=== PATIENT | female | born 1950 | race Caucasian/White ===

== ENCOUNTER 2016-12-24 16:40 | Inpatient (IN) | payer OTHER ==
[~2016-12-24] VITALS: Ht 167.6 cm; Wt 67.6 kg
[2016-12-24] MEDS ORDERED: HYDROCHLOROTHIA25 MG PO (17:12)
[2016-12-24] MEDS ORDERED: TENORMIN50 MG PO (17:12)
[2016-12-24] MEDS ORDERED: CYCLOBENZAPRINE10 MG PO (17:12)
[2016-12-24] MEDS ORDERED: DEXILANT60 M1 PO (17:13)
[2016-12-24 17:26] LABS: PLATELET COUNT 149 x10^3mcL (130-400); RED CELL DISTRIBUTION WIDTH 13.6 % (11.5-14.5)
[2016-12-24 17:45] LABS: BAND NEUTROPHIL 6 % (0-10); BASOPHIL 0 % (0-2); MONOCYTE 5 % (0-7); SEGMENTED NEUTROPHILS 84 % (37-75)
[2016-12-24 17:46] LABS: PLATELET MORPHOLOGY PLATELETS NORMAL
[2016-12-24 17:53] LABS: BILIRUBIN TOTAL 1.4 mg/dL (0.20-1.00); CALCIUM 8.4 mg/dL (8.5-10.1)
[2016-12-24 17:56] LABS: ALBUMIN 3.1 g/dL (3.4-5.0); TOTAL PROTEIN, SERUM 5.5 g/dL (6.4-8.2)
[2016-12-24 17:57] LABS: CARBON DIOXIDE 6.5 mmol/L (21-32); POTASSIUM SERUM 7.2 mmol/L (3.5-5.1)
[2016-12-24] MEDS ORDERED: SYNTHROID0.112 MG PO (18:39)
[2016-12-24] MEDS ORDERED: ESTRACE0.1 MG/GM TOP (18:42)
[2016-12-24 19:45] LABS: BILIRUBIN TOTAL 1.1 mg/dL (0.20-1.00); CREATININE SERUM 3.8 mg/dL (0.6-1.0)
[2016-12-24 19:58] LABS: UA SPECIFIC GRAVITY 1.015 (1.005-1.035); microscopic required? YES; urine erythrocyte 1+ (NEGATIVE)
[2016-12-24 20:01] LABS: TOTAL PROTEIN, SERUM 5.4 g/dL (6.4-8.2)
[2016-12-24 20:03] LABS: CARBON DIOXIDE 5.2 mmol/L (21-32); POTASSIUM SERUM 6.2 mmol/L (3.5-5.1)
[2016-12-24 20:54] LABS: T4(THYROXINE) 7.7 ug/dL (4.7-13.3)
[2016-12-25] VITALS (10 sets, daily range): BP systolic 70–113; BP diastolic 35–66
[2016-12-25 01:02] LABS: CALCIUM 7.1 mg/dL (8.5-10.1); CARBON DIOXIDE 12.4 mmol/L (21-32); CREATININE SERUM 3.7 mg/dL (0.6-1.0); MAGNESIUM 1.7 mg/dL (1.8-2.4); PHOSPHOROUS 6.2 mg/dL (2.5-4.9); POTASSIUM SERUM 4.3 mmol/L (3.5-5.1)
[2016-12-25 05:18] LABS: CALCIUM 6.9 mg/dL (8.5-10.1); CARBON DIOXIDE 15.7 mmol/L (21-32); CREATININE SERUM 3.8 mg/dL (0.6-1.0); MAGNESIUM 1.5 mg/dL (1.8-2.4); PHOSPHOROUS 4.3 mg/dL (2.5-4.9); POTASSIUM SERUM 4.1 mmol/L (3.5-5.1)
[2016-12-25 05:29] LABS: BASOPHIL % 0.3 % (0-2); PLATELET COUNT 130 x10^3mcL (130-400); RED CELL DISTRIBUTION WIDTH 13.2 % (11.5-14.5)
[2016-12-25 07:48] LABS: CALCIUM 7.1 mg/dL (8.5-10.1); CARBON DIOXIDE 19.1 mmol/L (21-32); CREATININE SERUM 3.6 mg/dL (0.6-1.0); MAGNESIUM 1.5 mg/dL (1.8-2.4); PHOSPHOROUS 3.5 mg/dL (2.5-4.9); POTASSIUM SERUM 3.9 mmol/L (3.5-5.1)
[2016-12-25 11:23] LABS: CALCIUM 6.9 mg/dL (8.5-10.1); MAGNESIUM 1.4 mg/dL (1.8-2.4); PHOSPHOROUS 3.3 mg/dL (2.5-4.9); POTASSIUM SERUM 4.1 mmol/L (3.5-5.1)
[2016-12-25 15:31] LABS: CALCIUM 6.5 mg/dL (8.5-10.1); CREATININE SERUM 3.8 mg/dL (0.6-1.0); MAGNESIUM 2.2 mg/dL (1.8-2.4); PHOSPHOROUS 3.2 mg/dL (2.5-4.9); POTASSIUM SERUM 3.9 mmol/L (3.5-5.1)
[2016-12-25 16:57] LABS: PLATELET COUNT 131 x10^3mcL (130-400); RED CELL DISTRIBUTION WIDTH 13.5 % (11.5-14.5)
[2016-12-25 17:22] LABS: BAND NEUTROPHIL 10 % (0-10); BASOPHIL 0 % (0-2); MONOCYTE 5 % (0-7); SEGMENTED NEUTROPHILS 78 % (37-75)
[2016-12-25 18:53] LABS: CALCIUM 7.1 mg/dL (8.5-10.1); CARBON DIOXIDE 22.5 mmol/L (21-32); PHOSPHOROUS 4.2 mg/dL (2.5-4.9); POTASSIUM SERUM 4.5 mmol/L (3.5-5.1)
[2016-12-25 18:58] LABS: CREATININE SERUM 4.1 mg/dL (0.6-1.0)
[2016-12-26] VITALS (18 sets, daily range): BP systolic 91–118; BP diastolic 36–64
[2016-12-26 00:57] LABS: CARBON DIOXIDE 17.1 mmol/L (21-32); MAGNESIUM 1.8 mg/dL (1.8-2.4); PHOSPHOROUS 3.7 mg/dL (2.5-4.9); POTASSIUM SERUM 4.6 mmol/L (3.5-5.1)
[2016-12-26 01:04] LABS: CREATININE SERUM 4.3 mg/dL (0.6-1.0)
[2016-12-26 05:23] LABS: RED CELL DISTRIBUTION WIDTH 13.4 % (11.5-14.5)
[2016-12-26 05:35] LABS: PLATELET COUNT 126 x10^3mcL (130-400)
[2016-12-26 05:40] LABS: CALCIUM 6.8 mg/dL (8.5-10.1); CARBON DIOXIDE 15.2 mmol/L (21-32); MAGNESIUM 1.6 mg/dL (1.8-2.4); POTASSIUM SERUM 4.7 mmol/L (3.5-5.1)
[2016-12-26 05:52] LABS: CREATININE SERUM 4.8 mg/dL (0.6-1.0)
[2016-12-26 06:13] LABS: BAND NEUTROPHIL 5 % (0-10); MONOCYTE 4 % (0-7); SEGMENTED NEUTROPHILS 79 % (37-75)
[2016-12-26 06:14] LABS: METAMYELOCTE 4 % (0-2)
[2016-12-26 06:15] LABS: ovalocyte/elliptocyte 1+; rbc morphology (normal/abnorm) ABNORMAL (NORMAL); tear drop cell (dacryocyte) 1+
[2016-12-26 11:32] LABS: CALCIUM 6.7 mg/dL (8.5-10.1); CARBON DIOXIDE 12.8 mmol/L (21-32); MAGNESIUM 2.1 mg/dL (1.8-2.4); POTASSIUM SERUM 3.6 mmol/L (3.5-5.1)
[2016-12-26 11:37] LABS: CREATININE SERUM 5.2 mg/dL (0.6-1.0)
[2016-12-26 16:20] LABS: CARBON DIOXIDE 15.3 mmol/L (21-32); PHOSPHOROUS 3.8 mg/dL (2.5-4.9); POTASSIUM SERUM 3.5 mmol/L (3.5-5.1)
[2016-12-26 20:04] LABS: CARBON DIOXIDE 17.6 mmol/L (21-32); PHOSPHOROUS 3.4 mg/dL (2.5-4.9); POTASSIUM SERUM 3.2 mmol/L (3.5-5.1)
[2016-12-26 20:05] LABS: CREATININE SERUM 4.8 mg/dL (0.6-1.0)
[2016-12-27] VITALS (17 sets, daily range): BP systolic 96–147; BP diastolic 37–54
[2016-12-27 01:23] LABS: MAGNESIUM 1.8 mg/dL (1.8-2.4); PHOSPHOROUS 2.8 mg/dL (2.5-4.9); POTASSIUM SERUM 3.7 mmol/L (3.5-5.1)
[2016-12-27 01:25] LABS: CREATININE SERUM 4.6 mg/dL (0.6-1.0)
[2016-12-27 05:22] LABS: BASOPHIL % 0.2 % (0-2); RED CELL DISTRIBUTION WIDTH 14.2 % (11.5-14.5)
[2016-12-27 05:28] LABS: PLATELET COUNT 83 x10^3mcL (130-400)
[2016-12-27 05:40] LABS: CALCIUM 7.2 mg/dL (8.5-10.1); CARBON DIOXIDE 18.2 mmol/L (21-32); MAGNESIUM 1.7 mg/dL (1.8-2.4); PHOSPHOROUS 2.5 mg/dL (2.5-4.9); POTASSIUM SERUM 3.3 mmol/L (3.5-5.1)
[2016-12-27 05:44] LABS: CREATININE SERUM 4.6 mg/dL (0.6-1.0)
[2016-12-27 08:55] LABS: CALCIUM 7.4 mg/dL (8.5-10.1); CARBON DIOXIDE 21.7 mmol/L (21-32); MAGNESIUM 2.2 mg/dL (1.8-2.4); PHOSPHOROUS 2.4 mg/dL (2.5-4.9); POTASSIUM SERUM 3.6 mmol/L (3.5-5.1)
[2016-12-27 09:00] LABS: CREATININE SERUM 4.7 mg/dL (0.6-1.0)
[2016-12-27 12:34] LABS: CALCIUM 7.3 mg/dL (8.5-10.1); CARBON DIOXIDE 20.7 mmol/L (21-32); POTASSIUM SERUM 3.7 mmol/L (3.5-5.1)
[2016-12-27 12:38] LABS: CREATININE SERUM 4.5 mg/dL (0.6-1.0)
[2016-12-27 17:00] LABS: CALCIUM 7.3 mg/dL (8.5-10.1); CARBON DIOXIDE 20.1 mmol/L (21-32); POTASSIUM SERUM 4.3 mmol/L (3.5-5.1)
[2016-12-27 17:02] LABS: CREATININE SERUM 4.4 mg/dL (0.6-1.0)
[2016-12-27 20:48] LABS: CALCIUM 7.3 mg/dL (8.5-10.1); CARBON DIOXIDE 17.8 mmol/L (21-32); POTASSIUM SERUM 5.3 mmol/L (3.5-5.1)
[2016-12-27 20:51] LABS: CREATININE SERUM 4.7 mg/dL (0.6-1.0)
[2016-12-28] VITALS (15 sets, daily range): BP systolic 95–133; BP diastolic 41–57
[2016-12-28 00:27] LABS: CALCIUM 7.2 mg/dL (8.5-10.1); CARBON DIOXIDE 18.1 mmol/L (21-32); POTASSIUM SERUM 4.8 mmol/L (3.5-5.1)
[2016-12-28 00:29] LABS: CREATININE SERUM 4.9 mg/dL (0.6-1.0)
[2016-12-28 04:47] LABS: BASOPHIL % 0.2 % (0-2); RED CELL DISTRIBUTION WIDTH 13.4 % (11.5-14.5)
[2016-12-28 04:51] LABS: PLATELET COUNT 84 x10^3mcL (130-400)
[2016-12-28 05:15] LABS: CALCIUM 7.4 mg/dL (8.5-10.1); CARBON DIOXIDE 20.6 mmol/L (21-32); PHOSPHOROUS 3.3 mg/dL (2.5-4.9); POTASSIUM SERUM 4.7 mmol/L (3.5-5.1)
[2016-12-28 05:18] LABS: CREATININE SERUM 4.7 mg/dL (0.6-1.0)
[2016-12-28 09:20] LABS: CALCIUM 7.5 mg/dL (8.5-10.1); CARBON DIOXIDE 20.4 mmol/L (21-32); POTASSIUM SERUM 4.5 mmol/L (3.5-5.1)
[2016-12-28 09:21] LABS: ALBUMIN 1.7 g/dL (3.4-5.0); BILIRUBIN DIRECT 0.3 mg/dL (0.0-0.2); BILIRUBIN TOTAL 0.48 mg/dL (0.20-1.00); CREATININE SERUM 4.6 mg/dL (0.6-1.0); TOTAL PROTEIN, SERUM 4.4 g/dL (6.4-8.2)
[2016-12-28 12:59] LABS: CALCIUM 7.5 mg/dL (8.5-10.1); CARBON DIOXIDE 18.9 mmol/L (21-32); POTASSIUM SERUM 4.8 mmol/L (3.5-5.1)
[2016-12-28 13:01] LABS: CREATININE SERUM 4.6 mg/dL (0.6-1.0)
[2016-12-29] VITALS (18 sets, daily range): BP systolic 107–133; BP diastolic 46–72
[2016-12-29 04:49] LABS: CALCIUM 7.4 mg/dL (8.5-10.1); CARBON DIOXIDE 24.7 mmol/L (21-32); PHOSPHOROUS 3.9 mg/dL (2.5-4.9); POTASSIUM SERUM 4.7 mmol/L (3.5-5.1)
[2016-12-29 04:51] LABS: BASOPHIL % 0.3 % (0-2); RED CELL DISTRIBUTION WIDTH 13.7 % (11.5-14.5)
[2016-12-29 04:53] LABS: CREATININE SERUM 4.4 mg/dL (0.6-1.0); PLATELET COUNT 89 x10^3mcL (130-400)
[2016-12-29 05:32] LABS: ovalocyte/elliptocyte 1+; rbc morphology (normal/abnorm) ABNORMAL (NORMAL)
[2016-12-30] VITALS (15 sets, daily range): BP systolic 113–187; BP diastolic 42–70
[2016-12-30 05:35] LABS: BASOPHIL % 0.3 % (0-2)
[2016-12-30 05:37] LABS: PLATELET COUNT 101 x10^3mcL (130-400); RED CELL DISTRIBUTION WIDTH 17.6 % (11.5-14.5)
[2016-12-30 05:45] LABS: CALCIUM 8.3 mg/dL (8.5-10.1); CARBON DIOXIDE 23.5 mmol/L (21-32); PHOSPHOROUS 4.6 mg/dL (2.5-4.9); POTASSIUM SERUM 4.7 mmol/L (3.5-5.1)
[2016-12-30 05:54] LABS: CREATININE SERUM 4.1 mg/dL (0.6-1.0)
[2016-12-31] VITALS (25 sets, daily range): BP systolic 103–143; BP diastolic 39–67
[2016-12-31 05:57] LABS: CALCIUM 8.2 mg/dL (8.5-10.1); CARBON DIOXIDE 22.2 mmol/L (21-32); MAGNESIUM 1.7 mg/dL (1.8-2.4); PHOSPHOROUS 5.2 mg/dL (2.5-4.9); POTASSIUM SERUM 4.5 mmol/L (3.5-5.1)
[2016-12-31 06:02] LABS: CREATININE SERUM 4.1 mg/dL (0.6-1.0)
[2016-12-31 06:03] LABS: BASOPHIL % 0.3 % (0-2)
[2016-12-31 06:06] LABS: PLATELET COUNT 117 x10^3mcL (130-400); RED CELL DISTRIBUTION WIDTH 18.1 % (11.5-14.5)
[2017-01-01] VITALS (18 sets, daily range): BP systolic 114–154; BP diastolic 47–86
[2017-01-01 05:01] LABS: BASOPHIL % 0.5 % (0-2); PLATELET COUNT 139 x10^3mcL (130-400)
[2017-01-01 05:07] LABS: RED CELL DISTRIBUTION WIDTH 17.8 % (11.5-14.5)
[2017-01-01 05:13] LABS: CALCIUM 8.3 mg/dL (8.5-10.1); CARBON DIOXIDE 25.5 mmol/L (21-32); MAGNESIUM 2.5 mg/dL (1.8-2.4); PHOSPHOROUS 4.4 mg/dL (2.5-4.9); POTASSIUM SERUM 3.3 mmol/L (3.5-5.1)
[2017-01-01 05:23] LABS: CREATININE SERUM 4.1 mg/dL (0.6-1.0)
[2017-01-02] VITALS (11 sets, daily range): BP systolic 91–151; BP diastolic 46–68
[2017-01-02 04:43] LABS: BASOPHIL % 0.4 % (0-2); PLATELET COUNT 147 x10^3mcL (130-400)
[2017-01-02 04:45] LABS: RED CELL DISTRIBUTION WIDTH 17.6 % (11.5-14.5)
[2017-01-02 04:59] LABS: CALCIUM 8.4 mg/dL (8.5-10.1); CARBON DIOXIDE 27.9 mmol/L (21-32); CREATININE SERUM 3.8 mg/dL (0.6-1.0); MAGNESIUM 2.2 mg/dL (1.8-2.4); POTASSIUM SERUM 3.5 mmol/L (3.5-5.1)
[2017-01-03] VITALS (7 sets, daily range): BP systolic 115–144; BP diastolic 47–69
[2017-01-03 05:34] LABS: CALCIUM 8.7 mg/dL (8.5-10.1); CARBON DIOXIDE 31.1 mmol/L (21-32); CREATININE SERUM 3.6 mg/dL (0.6-1.0); MAGNESIUM 2.2 mg/dL (1.8-2.4); POTASSIUM SERUM 3.4 mmol/L (3.5-5.1)
[2017-01-03 05:35] LABS: BASOPHIL % 0.3 % (0-2); PLATELET COUNT 184 x10^3mcL (130-400); RED CELL DISTRIBUTION WIDTH 17.9 % (11.5-14.5)
[2017-01-04 03:23] VITALS: BP 136/53
[2017-01-04 05:41] LABS: PLATELET COUNT 216 x10^3mcL (130-400)
[2017-01-04 06:03] LABS: RED CELL DISTRIBUTION WIDTH 18.4 % (11.5-14.5)
[2017-01-04 06:07] LABS: BAND NEUTROPHIL 5 % (0-10); METAMYELOCTE 1 % (0-2); MONOCYTE 1 % (0-7); SEGMENTED NEUTROPHILS 89 % (37-75)
[2017-01-04 06:10] LABS: PLATELET MORPHOLOGY LARGE PLATELET SEEN; ovalocyte/elliptocyte 1+; rbc morphology (normal/abnorm) ABNORMAL (NORMAL); tear drop cell (dacryocyte) 1+
[2017-01-04 06:35] LABS: CALCIUM 8.1 mg/dL (8.5-10.1); CARBON DIOXIDE 28.9 mmol/L (21-32); CREATININE SERUM 3.7 mg/dL (0.6-1.0); MAGNESIUM 1.9 mg/dL (1.8-2.4); PHOSPHOROUS 4.5 mg/dL (2.5-4.9); POTASSIUM SERUM 4.6 mmol/L (3.5-5.1)
[2017-01-04 07:29] VITALS: BP 125/43
[2017-01-04 11:11] VITALS: BP 124/45
[2017-01-04 11:16] LABS: BASOPHIL % 0.1 % (0-2); PLATELET COUNT 233 x10^3mcL (130-400)
[2017-01-04 11:20] LABS: RED CELL DISTRIBUTION WIDTH 19.4 % (11.5-14.5)
[2017-01-04 21:22] VITALS: BP 118/39
[2017-01-05] VITALS (9 sets, daily range): BP systolic 94–140; BP diastolic 32–50; Ht 167.6 cm; Wt 67.6 kg
[2017-01-05 06:59] LABS: MAGNESIUM 2.6 mg/dL (1.8-2.4); PHOSPHOROUS 5.1 mg/dL (2.5-4.9)
[2017-01-05 07:00] LABS: PLATELET COUNT 251 x10^3mcL (130-400); RED CELL DISTRIBUTION WIDTH 18.8 % (11.5-14.5)
[2017-01-05 07:02] LABS: BILIRUBIN TOTAL 1.3 mg/dL (0.20-1.00); CALCIUM 8.7 mg/dL (8.5-10.1); CARBON DIOXIDE 25.2 mmol/L (21-32); CREATININE SERUM 3.9 mg/dL (0.6-1.0)
[2017-01-05 07:05] LABS: ALBUMIN 1.7 g/dL (3.4-5.0); TOTAL PROTEIN, SERUM 5.9 g/dL (6.4-8.2)
[2017-01-05 10:18] LABS: BAND NEUTROPHIL 3 % (0-10); SEGMENTED NEUTROPHILS 89 % (37-75)
[2017-01-05 10:19] LABS: MONOCYTE 4 % (0-7); rbc morphology (normal/abnorm) ABNORMAL (NORMAL)
[2017-01-06 06:14] VITALS: BP 120/43
[2017-01-06 06:26] LABS: BASOPHIL % 0.1 % (0-2); PLATELET COUNT 255 x10^3mcL (130-400)
[2017-01-06 06:28] LABS: CALCIUM 8.2 mg/dL (8.5-10.1); CARBON DIOXIDE 27.7 mmol/L (21-32); CREATININE SERUM 3.5 mg/dL (0.6-1.0); MAGNESIUM 2.1 mg/dL (1.8-2.4); PHOSPHOROUS 4.7 mg/dL (2.5-4.9); POTASSIUM SERUM 3.1 mmol/L (3.5-5.1)
[2017-01-06 07:04] LABS: RED CELL DISTRIBUTION WIDTH 20.1 % (11.5-14.5); rbc morphology (normal/abnorm) ABNORMAL (NORMAL)
[2017-01-06 10:00] VITALS: BP 122/43
[2017-01-06 14:00] VITALS: BP 126/45
[2017-01-06 17:55] VITALS: BP 117/40
[2017-01-06 22:15] VITALS: BP 121/44
[2017-01-07 06:13] LABS: PLATELET COUNT 283 x10^3mcL (130-400)
[2017-01-07 06:14] VITALS: BP 114/49
[2017-01-07 06:25] LABS: BASOPHIL % 0 % (0-2)
[2017-01-07 06:31] LABS: CALCIUM 8.2 mg/dL (8.5-10.1); CARBON DIOXIDE 27.6 mmol/L (21-32); CREATININE SERUM 3.2 mg/dL (0.6-1.0); PHOSPHOROUS 3.4 mg/dL (2.5-4.9)
[2017-01-07 11:13] VITALS: BP 115/38
[2017-01-07 21:15] VITALS: BP 115/43
[2017-01-08 05:27] VITALS: BP 121/41
[2017-01-08 06:04] LABS: PLATELET COUNT 321 x10^3mcL (130-400)
[2017-01-08 06:37] LABS: CALCIUM 8.4 mg/dL (8.5-10.1); CARBON DIOXIDE 24.9 mmol/L (21-32); CREATININE SERUM 3.3 mg/dL (0.6-1.0); PHOSPHOROUS 3.2 mg/dL (2.5-4.9); POTASSIUM SERUM 4.3 mmol/L (3.5-5.1)
[2017-01-08 06:39] LABS: RED CELL DISTRIBUTION WIDTH 20.9 % (11.5-14.5)
[2017-01-08 08:41] VITALS: BP 123/45
[2017-01-08 12:16] LABS: BAND NEUTROPHIL 0 % (0-10); BASOPHIL 1 % (0-2); MONOCYTE 8 % (0-7); SEGMENTED NEUTROPHILS 85 % (37-75)
[2017-01-08 12:18] LABS: PLATELET MORPHOLOGY LARGE PLATELET SEEN; rbc morphology (normal/abnorm) ABNORMAL (NORMAL); schistocyte (helmet cell) 1+
[2017-01-08 13:04] VITALS: BP 123/41
[2017-01-08 16:33] VITALS: BP 113/44
[2017-01-08 21:21] VITALS: BP 118/43
[2017-01-09 06:00] VITALS: BP 127/46
[2017-01-09 06:16] LABS: PLATELET COUNT 300 x10^3mcL (130-400)
[2017-01-09 06:45] LABS: RED CELL DISTRIBUTION WIDTH 21.5 % (11.5-14.5)
[2017-01-09 06:53] LABS: CALCIUM 8.1 mg/dL (8.5-10.1); CARBON DIOXIDE 26.2 mmol/L (21-32); CREATININE SERUM 3.4 mg/dL (0.6-1.0); MAGNESIUM 1.9 mg/dL (1.8-2.4); PHOSPHOROUS 3.3 mg/dL (2.5-4.9); POTASSIUM SERUM 4.5 mmol/L (3.5-5.1)
[2017-01-09 10:00] VITALS: BP 118/37
[2017-01-09 10:20] VITALS: BP 118/37
[2017-01-09 13:41] LABS: MONOCYTE 6 % (0-7); SEGMENTED NEUTROPHILS 87 % (37-75); rbc morphology (normal/abnorm) ABNORMAL (NORMAL)
[2017-01-09 13:42] LABS: PLATELET MORPHOLOGY LARGE PLATELET SEEN
[2017-01-09 14:30] VITALS: BP 123/43
[2017-01-09 18:58] VITALS: BP 120/47
[2017-01-09 21:28] VITALS: BP 118/44
[2017-01-10 05:44] VITALS: BP 124/46
[2017-01-10 06:13] LABS: PLATELET COUNT 312 x10^3mcL (130-400)
[2017-01-10 06:36] LABS: CALCIUM 8.4 mg/dL (8.5-10.1); CARBON DIOXIDE 23.6 mmol/L (21-32); CREATININE SERUM 3.2 mg/dL (0.6-1.0); POTASSIUM SERUM 4.2 mmol/L (3.5-5.1)
[2017-01-10 07:21] LABS: RED CELL DISTRIBUTION WIDTH 21.1 % (11.5-14.5)
[2017-01-10 10:25] LABS: BAND NEUTROPHIL 1 % (0-10); BASOPHIL 0 % (0-2); MONOCYTE 8 % (0-7); PLATELET MORPHOLOGY LARGE PLATELET SEEN; SEGMENTED NEUTROPHILS 72 % (37-75); rbc morphology (normal/abnorm) ABNORMAL (NORMAL)
[2017-01-10 10:50] VITALS: BP 128/51
[2017-01-10 14:55] VITALS: BP 127/45
[2017-01-10 18:15] VITALS: BP 132/46
[2017-01-10 21:49] VITALS: BP 125/42
[2017-01-11 06:17] VITALS: BP 114/47
[2017-01-11 07:12] LABS: PLATELET COUNT 336 x10^3mcL (130-400)
[2017-01-11 07:24] LABS: RED CELL DISTRIBUTION WIDTH 22.9 % (11.5-14.5)
[2017-01-11 07:28] LABS: CALCIUM 8.5 mg/dL (8.5-10.1); CARBON DIOXIDE 24.2 mmol/L (21-32); CREATININE SERUM 3.2 mg/dL (0.6-1.0); POTASSIUM SERUM 3.7 mmol/L (3.5-5.1)
[2017-01-11 09:33] VITALS: BP 123/84
[2017-01-11 10:08] LABS: BAND NEUTROPHIL 1 % (0-10); BASOPHIL 0 % (0-2); MONOCYTE 8 % (0-7); SEGMENTED NEUTROPHILS 80 % (37-75)
[2017-01-11 10:09] LABS: rbc morphology (normal/abnorm) ABNORMAL (NORMAL)
[2017-01-11 13:01] VITALS: BP 127/44
[2017-01-11 17:14] VITALS: BP 122/43
[2017-01-11 23:13] VITALS: BP 134/49
[2017-01-12 05:23] VITALS: BP 118/41
[2017-01-12 07:18] LABS: PLATELET COUNT 314 x10^3mcL (130-400)
[2017-01-12 07:20] LABS: RED CELL DISTRIBUTION WIDTH 23.3 % (11.5-14.5)
[2017-01-12 07:29] LABS: MAGNESIUM 1.9 mg/dL (1.8-2.4); PHOSPHOROUS 3.6 mg/dL (2.5-4.9)
[2017-01-12 08:16] LABS: CALCIUM 8.1 mg/dL (8.5-10.1); CARBON DIOXIDE 21.8 mmol/L (21-32); POTASSIUM SERUM 4.3 mmol/L (3.5-5.1)
[2017-01-12 09:31] VITALS: BP 122/47
[2017-01-12 11:07] LABS: BAND NEUTROPHIL 1 % (0-10); MONOCYTE 5 % (0-7)
[2017-01-12 11:09] LABS: SEGMENTED NEUTROPHILS 85 % (37-75)
[2017-01-12 11:10] LABS: PLATELET MORPHOLOGY LARGE PLATELET SEEN; rbc morphology (normal/abnorm) ABNORMAL (NORMAL)
[2017-01-12 13:35] VITALS: BP 123/49
[2017-01-12 17:55] VITALS: BP 126/41
[2017-01-12 21:46] VITALS: BP 101/32
[2017-01-13 05:10] VITALS: BP 127/46
[2017-01-13 06:51] LABS: CALCIUM 8.3 mg/dL (8.5-10.1); CARBON DIOXIDE 22.6 mmol/L (21-32); MAGNESIUM 1.9 mg/dL (1.8-2.4); PHOSPHOROUS 3.7 mg/dL (2.5-4.9); POTASSIUM SERUM 4.1 mmol/L (3.5-5.1)
[2017-01-13 08:58] LABS: PLATELET COUNT 306 x10^3mcL (130-400); RED CELL DISTRIBUTION WIDTH 24.5 % (11.5-14.5)
[2017-01-13 09:06] VITALS: BP 116/42
[2017-01-13 11:05] LABS: BAND NEUTROPHIL 0 % (0-10); SEGMENTED NEUTROPHILS 82 % (37-75)
[2017-01-13 11:07] LABS: MONOCYTE 12 % (0-7); rbc morphology (normal/abnorm) ABNORMAL (NORMAL)
[2017-01-13 12:14] VITALS: BP 118/43
[2017-01-13 14:13] LABS: AMYLASE 41 U/L (25-115); LIPASE 327 IU/L (73-393)
[2017-01-13 16:44] VITALS: BP 116/39
[2017-01-13 21:25] VITALS: BP 123/44
[2017-01-14] VITALS (7 sets, daily range): BP systolic 113–129; BP diastolic 36–49
[2017-01-14 07:24] LABS: CALCIUM 8.2 mg/dL (8.5-10.1); CARBON DIOXIDE 21.6 mmol/L (21-32); CREATININE SERUM 3.6 mg/dL (0.6-1.0); POTASSIUM SERUM 4.6 mmol/L (3.5-5.1)
[2017-01-14 07:28] LABS: PLATELET COUNT 272 x10^3mcL (130-400)
[2017-01-14 07:30] LABS: RED CELL DISTRIBUTION WIDTH 22.8 % (11.5-14.5)
[2017-01-14 12:47] LABS: MONOCYTE 5 % (0-7); PLATELET MORPHOLOGY PLATELETS NORMAL; SEGMENTED NEUTROPHILS 88 % (37-75); rbc morphology (normal/abnorm) ABNORMAL (NORMAL)
[2017-01-15 05:59] VITALS: BP 124/47
[2017-01-15 10:01] VITALS: BP 105/55
[2017-01-15 12:39] LABS: CALCIUM 8.3 mg/dL (8.5-10.1); CARBON DIOXIDE 19.1 mmol/L (21-32)
[2017-01-15 12:46] LABS: CREATININE SERUM 4.1 mg/dL (0.6-1.0)
[2017-01-15 14:01] VITALS: BP 118/60
[2017-01-15 17:25] LABS: CALCIUM 8.1 mg/dL (8.5-10.1); CARBON DIOXIDE 21.3 mmol/L (21-32); POTASSIUM SERUM 5.3 mmol/L (3.5-5.1)
[2017-01-15 17:36] LABS: CREATININE SERUM 4.2 mg/dL (0.6-1.0)
[2017-01-15 17:42] VITALS: BP 110/60
[2017-01-15 21:50] LABS: CALCIUM 8.4 mg/dL (8.5-10.1); CARBON DIOXIDE 16.1 mmol/L (21-32); POTASSIUM SERUM 4.8 mmol/L (3.5-5.1)
[2017-01-15 22:03] LABS: CREATININE SERUM 4.7 mg/dL (0.6-1.0)
[2017-01-15 22:36] VITALS: BP 105/42
[2017-01-16 06:54] VITALS: BP 104/37
[2017-01-16 06:57] LABS: PLATELET COUNT 181 x10^3mcL (130-400)
[2017-01-16 07:02] LABS: CALCIUM 8.2 mg/dL (8.5-10.1); CREATININE SERUM 3.1 mg/dL (0.6-1.0); MAGNESIUM 1.7 mg/dL (1.8-2.4); PHOSPHOROUS 4.3 mg/dL (2.5-4.9); POTASSIUM SERUM 4.3 mmol/L (3.5-5.1)
[2017-01-16 07:11] VITALS: BP 107/42
[2017-01-16 07:34] LABS: RED CELL DISTRIBUTION WIDTH 22.4 % (11.5-14.5)
[2017-01-16 09:57] LABS: MONOCYTE 5 % (0-7); SEGMENTED NEUTROPHILS 87 % (37-75); rbc morphology (normal/abnorm) ABNORMAL (NORMAL)
[2017-01-16 09:58] LABS: PLATELET MORPHOLOGY LARGE PLATELET SEEN
[2017-01-16 10:42] VITALS: BP 114/37
[2017-01-16 14:00] VITALS: BP 108/39
[2017-01-16 19:15] VITALS: BP 119/45
[2017-01-16 21:47] VITALS: BP 110/35
[2017-01-17] VITALS (9 sets, daily range): BP systolic 104–122; BP diastolic 40–51
[2017-01-17 06:09] LABS: CALCIUM 7.9 mg/dL (8.5-10.1); CARBON DIOXIDE 24.6 mmol/L (21-32); MAGNESIUM 2.5 mg/dL (1.8-2.4); PHOSPHOROUS 4.6 mg/dL (2.5-4.9)
[2017-01-17 06:14] LABS: PLATELET COUNT 193 x10^3mcL (130-400)
[2017-01-17 06:27] LABS: CREATININE SERUM 4.1 mg/dL (0.6-1.0)
[2017-01-17 06:57] LABS: RED CELL DISTRIBUTION WIDTH 19.9 % (11.5-14.5)
[2017-01-17 10:54] LABS: ATYPICAL LYMPH 1 %; BAND NEUTROPHIL 1 % (0-10); MONOCYTE 5 % (0-7); SEGMENTED NEUTROPHILS 77 % (37-75)
[2017-01-17 10:55] LABS: PLATELET MORPHOLOGY PLATELETS NORMAL; rbc morphology (normal/abnorm) ABNORMAL (NORMAL)
[2017-01-17 16:07] LABS: SOURCE FLUID THORACENTESIS
[2017-01-18 05:09] VITALS: BP 116/69
[2017-01-18 06:31] LABS: PLATELET COUNT 193 x10^3mcL (130-400)
[2017-01-18 06:45] LABS: RED CELL DISTRIBUTION WIDTH 20.3 % (11.5-14.5)
[2017-01-18 06:50] LABS: T4(THYROXINE) 4.5 ug/dL (4.7-13.3)
[2017-01-18 07:05] LABS: CALCIUM 7.9 mg/dL (8.5-10.1); CARBON DIOXIDE 23.1 mmol/L (21-32); MAGNESIUM 2.5 mg/dL (1.8-2.4); PHOSPHOROUS 4.8 mg/dL (2.5-4.9); POTASSIUM SERUM 3.6 mmol/L (3.5-5.1)
[2017-01-18 07:13] LABS: CREATININE SERUM 4.7 mg/dL (0.6-1.0)
[2017-01-18 09:14] VITALS: BP 129/47
[2017-01-18 09:21] LABS: T3 TOTAL 0.44 ng/mL
[2017-01-18 12:54] VITALS: BP 119/78
[2017-01-18 13:15] LABS: MONOCYTE 4 % (0-7); SEGMENTED NEUTROPHILS 86 % (37-75)
[2017-01-18 13:16] LABS: PLATELET MORPHOLOGY LARGE PLATELET SEEN; rbc morphology (normal/abnorm) ABNORMAL (NORMAL)
[2017-01-18 17:12] VITALS: BP 127/51
[2017-01-18 21:11] VITALS: BP 120/53
[2017-01-19 05:58] VITALS: BP 130/59
[2017-01-19 06:07] LABS: PLATELET COUNT 176 x10^3mcL (130-400)
[2017-01-19 06:32] LABS: CARBON DIOXIDE 24.5 mmol/L (21-32); CREATININE SERUM 3.6 mg/dL (0.6-1.0); POTASSIUM SERUM 3.8 mmol/L (3.5-5.1)
[2017-01-19 06:53] LABS: RED CELL DISTRIBUTION WIDTH 21.5 % (11.5-14.5)
[2017-01-19 09:14] VITALS: BP 130/56
[2017-01-19 11:13] LABS: BAND NEUTROPHIL 0 % (0-10); BASOPHIL 0 % (0-2); MONOCYTE 3 % (0-7); SEGMENTED NEUTROPHILS 88 % (37-75)
[2017-01-19 11:14] LABS: rbc morphology (normal/abnorm) ABNORMAL (NORMAL)
[2017-01-19 11:15] LABS: PLATELET MORPHOLOGY PLATELETS DECREASED
[2017-01-19 17:41] VITALS: BP 131/52
[2017-01-19 21:03] VITALS: BP 129/49
[2017-01-20 05:26] VITALS: BP 134/55
[2017-01-20 06:22] LABS: PLATELET COUNT 177 x10^3mcL (130-400)
[2017-01-20 06:58] LABS: CALCIUM 7.8 mg/dL (8.5-10.1); CARBON DIOXIDE 22.6 mmol/L (21-32); CREATININE SERUM 3.9 mg/dL (0.6-1.0); MAGNESIUM 2.1 mg/dL (1.8-2.4); POTASSIUM SERUM 4.6 mmol/L (3.5-5.1)
[2017-01-20 07:38] VITALS: BP 134/55
[2017-01-20 08:01] LABS: RED CELL DISTRIBUTION WIDTH 21.9 % (11.5-14.5)
[2017-01-20 09:18] LABS: BAND NEUTROPHIL 3 % (0-10); BASOPHIL 0 % (0-2); MONOCYTE 6 % (0-7); SEGMENTED NEUTROPHILS 80 % (37-75)
[2017-01-20 09:20] LABS: PLATELET MORPHOLOGY LARGE PLATELET SEEN; rbc morphology (normal/abnorm) ABNORMAL (NORMAL)
[2017-01-20 10:07] VITALS: BP 134/57
[2017-01-20 14:37] VITALS: BP 114/43
[2017-01-20 17:21] VITALS: BP 151/59
[2017-01-20 21:06] VITALS: BP 114/46
[2017-01-21 05:47] VITALS: BP 137/56
[2017-01-21 06:16] LABS: PLATELET COUNT 167 x10^3mcL (130-400)
[2017-01-21 06:39] LABS: CALCIUM 7.5 mg/dL (8.5-10.1); CARBON DIOXIDE 25.7 mmol/L (21-32); CREATININE SERUM 2.7 mg/dL (0.6-1.0); POTASSIUM SERUM 3.8 mmol/L (3.5-5.1)
[2017-01-21 07:19] LABS: RED CELL DISTRIBUTION WIDTH 23.5 % (11.5-14.5)
[2017-01-21 09:08] VITALS: BP 126/55
[2017-01-21 09:57] LABS: BAND NEUTROPHIL 0 % (0-10); BASOPHIL 0 % (0-2); MONOCYTE 12 % (0-7); SEGMENTED NEUTROPHILS 75 % (37-75); rbc morphology (normal/abnorm) ABNORMAL (NORMAL)
[2017-01-21 09:58] LABS: PLATELET MORPHOLOGY PLATELETS DECREASED
[2017-01-21 12:52] VITALS: BP 129/62
[2017-01-21 21:25] VITALS: BP 121/46
[2017-01-22 05:50] VITALS: BP 130/54
[2017-01-22 06:33] LABS: PLATELET COUNT 180 x10^3mcL (130-400)
[2017-01-22 06:44] LABS: CALCIUM 7.6 mg/dL (8.5-10.1); CARBON DIOXIDE 23.9 mmol/L (21-32); CREATININE SERUM 2.8 mg/dL (0.6-1.0); PHOSPHOROUS 4.2 mg/dL (2.5-4.9)
[2017-01-22 08:00] VITALS: BP 134/59
[2017-01-22 08:38] LABS: BAND NEUTROPHIL 0 % (0-10); BASOPHIL 0 % (0-2); MONOCYTE 9 % (0-7); SEGMENTED NEUTROPHILS 80 % (37-75)
[2017-01-22 08:40] LABS: PLATELET MORPHOLOGY PLATELETS DECREASED; rbc morphology (normal/abnorm) ABNORMAL (NORMAL)
[2017-01-22 12:13] VITALS: BP 137/61
[2017-01-22 16:15] VITALS: BP 128/61
[2017-01-22 21:45] VITALS: BP 114/60
[2017-01-23 05:44] VITALS: BP 128/53
[2017-01-23 06:54] LABS: CALCIUM 7.6 mg/dL (8.5-10.1); CARBON DIOXIDE 22.6 mmol/L (21-32); CREATININE SERUM 2.8 mg/dL (0.6-1.0); POTASSIUM SERUM 4.2 mmol/L (3.5-5.1)
[2017-01-23 07:08] LABS: PLATELET COUNT 159 x10^3mcL (130-400)
[2017-01-23 07:12] LABS: RED CELL DISTRIBUTION WIDTH 23.3 % (11.5-14.5)
[2017-01-23 08:21] LABS: BAND NEUTROPHIL 5 % (0-10); BASOPHIL 0 % (0-2); MONOCYTE 14 % (0-7); SEGMENTED NEUTROPHILS 67 % (37-75)
[2017-01-23 08:25] LABS: rbc morphology (normal/abnorm) ABNORMAL (NORMAL)
[2017-01-23 08:26] LABS: target cell (codocyte) 1+; tear drop cell (dacryocyte) 1+
[2017-01-23 08:28] LABS: PLATELET MORPHOLOGY GIANT PLATELET SEEN
[2017-01-23 10:00] VITALS: BP 116/65
[2017-01-23 14:20] VITALS: BP 112/66
[2017-01-23 18:31] VITALS: BP 121/61
[2017-01-23 20:54] VITALS: BP 117/52
[2017-01-24 05:21] VITALS: BP 96/56
[2017-01-24 05:48] LABS: PLATELET COUNT 152 x10^3mcL (130-400)
[2017-01-24 06:12] LABS: CALCIUM 7.6 mg/dL (8.5-10.1); CARBON DIOXIDE 24.9 mmol/L (21-32); CREATININE SERUM 2.9 mg/dL (0.6-1.0); POTASSIUM SERUM 4.5 mmol/L (3.5-5.1)
[2017-01-24 07:07] LABS: RED CELL DISTRIBUTION WIDTH 23.4 % (11.5-14.5)
[2017-01-24 08:07] LABS: BAND NEUTROPHIL 3 % (0-10); BASOPHIL 0 % (0-2)
[2017-01-24 08:08] LABS: MONOCYTE 15 % (0-7)
[2017-01-24 08:09] LABS: SEGMENTED NEUTROPHILS 64 % (37-75)
[2017-01-24 08:12] LABS: rbc morphology (normal/abnorm) ABNORMAL (NORMAL); target cell (codocyte) 1+; tear drop cell (dacryocyte) 1+
[2017-01-24 09:10] VITALS: BP 138/58
[2017-01-24 13:43] VITALS: BP 130/54
[2017-01-24 17:08] VITALS: BP 120/43
[2017-01-24 22:06] VITALS: BP 132/54
[2017-01-25 06:27] VITALS: BP 133/50
[2017-01-25 07:25] LABS: PLATELET COUNT 158 x10^3mcL (130-400); RED CELL DISTRIBUTION WIDTH 22.6 % (11.5-14.5)
[2017-01-25 08:59] LABS: CALCIUM 7.3 mg/dL (8.5-10.1); CARBON DIOXIDE 25.5 mmol/L (21-32); CREATININE SERUM 1.9 mg/dL (0.6-1.0); PHOSPHOROUS 3.5 mg/dL (2.5-4.9); POTASSIUM SERUM 4.3 mmol/L (3.5-5.1)
[2017-01-25 09:24] VITALS: BP 140/46
[2017-01-25 09:26] LABS: MONOCYTE 5 % (0-7); SEGMENTED NEUTROPHILS 75 % (37-75)
[2017-01-25 09:29] LABS: PLATELET MORPHOLOGY LARGE PLATELET SEEN; rbc morphology (normal/abnorm) ABNORMAL (NORMAL); tear drop cell (dacryocyte) 1+
[2017-01-25 12:01] VITALS: BP 112/44; BP 140/46
[2017-01-25] MEDS ORDERED: XOP0.63 HHN ×2 (12:09→14:11)
[2017-01-25] MEDS ORDERED: LIPI10 PO (12:09)
[2017-01-25 14:04] VITALS: BP 112/44
[2017-01-25] MEDS ORDERED: LEVEMIR100 U/M1 SQ (14:08)
[2017-01-25] MEDS ORDERED: LEXAPRO10 MG PO (14:08)
[2017-01-25] MEDS ORDERED: HUMULIN R100 U/1 M1 SC (14:08)
[2017-01-25] MEDS ORDERED: BAY PO (14:09)
[2017-01-25] MEDS ORDERED: MVIL PO (14:09)
[2017-01-25] MEDS ORDERED: COUGH100 MG/5 M PO (14:10)
[2017-01-25] MEDS ORDERED: ZOFI IV (14:10)
[2017-01-25] MEDS ORDERED: TYL650S PR (14:10)
[2017-01-25] MEDS ORDERED: PULMICORT0.5 MG/2 M IH (14:10)
[2017-01-25] MEDS ORDERED: FER300 PO (14:10)
[2017-01-25] MEDS ORDERED: NIT0.4 SL (14:11)
[2017-01-25] MEDS ORDERED: PEP20 PO (14:12)
[2017-01-25] MEDS ORDERED: LAC15L PO (14:13)
[2017-01-25] MEDS ORDERED: LEVAQUIN750 MG PO (14:29)
[2017-01-25] MEDS ORDERED: CLINDAMYCIN HC300 MG PO (14:30)
[2017-01-25] MEDS ORDERED: LAC PO (14:30)
== END 2017-01-25 15:18 | DRG 870 ==
LOC: ED 16:40 → DU 18:04 → IC 18:04 → DU 01-04 17:22 → IC 01-05 05:00 → DU 01-05 18:18
PROVIDERS: Emergency Medicine; Family Medicine; Internal Medicine; Internal Medicine Nephrology; ADMIT Family Medicine
PROC: 05HM33Z Insertion of Infusion Device into Right Internal Jugular Vein, Percutaneous Approach (ICD-10-PCS; 2016-12-24)
PROC: B543ZZA Ultrasonography of Right Jugular Veins, Guidance (ICD-10-PCS; 2016-12-24)
PROC: 5A1955Z Respiratory Ventilation, Greater than 96 Consecutive Hours (ICD-10-PCS; principal; 2016-12-25)
PROC: 0BH17EZ Insertion of Endotracheal Airway into Trachea, Via Natural or Artificial Opening (ICD-10-PCS; 2016-12-25)
PROC: 0DJ08ZZ Inspection of Upper Intestinal Tract, Via Natural or Artificial Opening Endoscopic (ICD-10-PCS; 2016-12-30)
PROC: 05HM33Z Insertion of Infusion Device into Right Internal Jugular Vein, Percutaneous Approach (ICD-10-PCS; 2017-01-15)
PROC: 05HN33Z Insertion of Infusion Device into Left Internal Jugular Vein, Percutaneous Approach (ICD-10-PCS; 2017-01-15)
PROC: 05HN33Z Insertion of Infusion Device into Left Internal Jugular Vein, Percutaneous Approach (ICD-10-PCS; 2017-01-22)
DX: A41.9 Sepsis, unspecified organism (principal); E10.10 Type 1 diabetes mellitus with ketoacidosis without coma; I50.43 Acute on chronic combined systolic (congestive) and diastolic (congestive) heart failure; K85.90 Acute pancreatitis without necrosis or infection, unspecified; N17.0 Acute kidney failure with tubular necrosis; R65.21 Severe sepsis with septic shock; G93.41 Metabolic encephalopathy; J96.00 Acute respiratory failure, unspecified whether with hypoxia or hypercapnia; N39.0 Urinary tract infection, site not specified; E87.1 Hypo-osmolality and hyponatremia; F32.2 Major depressive disorder, single episode, severe without psychotic features; I42.9 Cardiomyopathy, unspecified; E10.51 Type 1 diabetes mellitus with diabetic peripheral angiopathy without gangrene; E10.21 Type 1 diabetes mellitus with diabetic nephropathy; E10.42 Type 1 diabetes mellitus with diabetic polyneuropathy; M62.3 Immobility syndrome (paraplegic); I48.91 Unspecified atrial fibrillation; E87.5 Hyperkalemia; E83.42 Hypomagnesemia; M62.50 Muscle wasting and atrophy, not elsewhere classified, unspecified site; E03.9 Hypothyroidism, unspecified; E83.51 Hypocalcemia; B35.3 Tinea pedis; B35.1 Tinea unguium; N18.9 Chronic kidney disease, unspecified; Z79.4 Long term (current) use of insulin; Z87.891 Personal history of nicotine dependence; Z79.01 Long term (current) use of anticoagulants
CPT/HCPCS: 32555; 36556; 36600; 43235; 82962; 83880; 86580; 87804; 90732; 92526-GN; 92610; 97110-GP; 97530-GP; A4301; A4628; C1729; C9113; J0610; J0696; J0713; J1170; J1200; J1265; J1610; J1642; J1644; J1815; J1940; J2001; J2060; J2250; J2310; J2405; J2543; J2704; J3010; J3475; J3480; J3490; J7030; J7040; J7050; J7613; J7620; J7626; J8597; P9016; Q0092; Q0163